=== PATIENT | female | born 1945 | race Caucasian/White ===

== ENCOUNTER 2018-03-29 15:26 | Emergency (ER) | payer OTHER ==
[2018-03-29] MEDS ORDERED: LORazepam 2 MG/ML INJ IVP ONE (15:51)
--- NOTE | 2018-03-29 15:51 | EDPHY ---
H & P Time Seen by Provider: 03/29/18 15:45 HPI/ROS: HPI: This is a 72-year-old female who presents with Chief Complaint: Elevated blood pressure, headache Location: Body Quality: Elevated blood pressure, headache, stress Duration: Several days Signs and Symptoms: no shortness of breath at rest, no shortness of breath on exertion, no cough, no chest pain, no palpitations, no lower extremity edema, no wheezing, no orthopnea, no paroxysmal nocturnal dyspnea, no fever, no injury/ trauma, no hemoptysis, no carpal pedal spasms Timing: Acute, worse Severity: Moderate Context: Patient presents with several day history of not feeling well and increased stress secondary to family problems. Patient reports that she is extremely tearful and feels that this is taking its toll on her body. Patient reports that she started to feel nauseous, lightheaded and have a generalized dull aching headache today. So she took her blood pressure and noted that it was elevated. She has been on lisinopril 40 mg greater than 10 years. She took an extra dose of 40 mg tablet prior to arrival. She reports in [place] approximately 2-3 years ago she had a nuclear stress test performed that was negative per the patient. She denies any actual chest pain, vomiting, diaphoresis, cardiac awareness, palpitations, lower extremity edema, recent long distance travel. Patient had been on hydrochlorothiazide along with lisinopril in the past but was taken off while she lived in [place] due to "kidney issues." Modifying Factors: Lisinopril 40 mg Comment: ROS: A comprehensive 10 system review of systems is otherwise negative aside from elements mentioned in the history of present illness. MEDICAL/SURGICAL/SOCIAL HISTORY: Medical history: sinus arrhythmia, bradycardia, hypertension. Surgical history: Denies Social history: Never smoked. Retired. CONSTITUTIONAL: Tearful, nontoxic-appearing elderly white female, awake and alert, no obvious distress HEENT: Atraumatic and normocephalic, PERRL, EOMI. Nares patent; no rhinorrhea; no nasal mucosal edema. Tympanic membranes clear. Oropharynx clear, no exudate and moist pink mucosa. Airway patent. No lymphadenopathy. No meningismus. No carotid bruits. Cardiovascular: Normal S1/S2, regular rate, regular rhythm, without murmur rub or gallop. PULMONARY/CHEST: Symmetrical and nontender. Clear to auscultation bilaterally. Good air movement. No accessory muscle usage. ABDOMEN: Soft, nondistended, nontender, no rebound, no guarding, no peritoneal signs, no masses or organomegaly. No CVAT. EXTREMITIES: 2/2 pulses, strength 5/5, no deformities, no clubbing, no cyanosis or edema. NEUROLOGICAL: no focal neuro deficits. GCS 15. SKIN: Warm and dry, no erythema. no rash. Good capillary refill. Source: Patient Exam Limitations: No limitations - Medical/Surgical History Hx Asthma: No Hx Chronic Respiratory Disease: No Hx Diabetes: No Hx Cardiac Disease: No Hx Renal Disease: No Hx Cirrhosis: No Hx Alcoholism: No Hx HIV/AIDS: No Hx Splenectomy or Spleen Trauma: No Other PMH: sinus arrthmia, santhosh. HTN b - Social History Smoking Status: Never smoked Constitutional: Initial Vital Signs Temperature (C) 36.7 C 03/29/18 15:37 Heart Rate 76 03/29/18 15:37 Respiratory Rate 16 03/29/18 15:37 Blood Pressure 192/112 H 03/29/18 15:37 O2 Sat (%) 100 03/29/18 15:37 O2 Delivery Mode Room Air Allergies/Adverse Reactions: morphine Allergy (Verified 08/21/13 09:54) Penicillins Allergy (Verified 08/21/13 09:54) shellfish derived Allergy (Verified 08/21/13 09:54) Home Medications: Medication Instructions Recorded Hydrochlorothiazide 08/21/13 Lisinopril 08/21/13 Ondansetron Odt [Zofran Odt 4 mg 4 mg PO Q4PRN PRN #7 tab 08/21/13 (*)] LORazepam [Ativan (*)] 0.5 mg PO Q8 PRN #6 tab 03/29/18 Medical Decision Making ED Course/Re-evaluation: Vital signs reviewed upon arrival and 192/112 but normal sinus rhythm on registered nurse cardiac telemetry. Patient is hypertensive but asymptomatic. No chest pain. 2nd troponin not necessary. IV access, EKG, laboratory studies ordered Suspect this is related to anxiety and stress. Will give patient IV Ativan 1 mg 1608: EKG my read shows normal sinus rhythm with left ventricular hypertrophy but no acute ischemic changes. No Prior EKGs to compare. 1609: Notified by tech that troponin 0.00 1610: Labs reviewed. No signs of leukocytosis/anemia/platelet dysfunction/JAROD/ electrolyte imbalance/VTE/ACS. Calcium noted to be high normal likely due to dehydration. 1640: repeat BP 162/104. Patient is requesting a script for Ativan for increased stress as she is losing the place that she lives in. I believe that this is reasonable to provide to her dispense #6 Tablets. Patient is to follow up with primary care provider in the next 3-5 days for blood pressure monitoring and to determine if she needs to start another blood pressure medication. This patient was seen under the supervision of my secondary supervising physician. I evaluated care for this patient with a 10. Discussed this patient with Dr. Freitas who did not see the patient. Differential Diagnosis: Chest pain including but not limited to myocardial ischemia, pulmonary embolus, chest wall pain, pleural inflammation and pulmonary infectious causes. - Data Points Laboratory Results: Laboratory Results 03/29/18 15:45 03/29/18 15:45 03/29/18 03/29/18 03/29/18 15:59 15:45 15:45 WBC RBC Hgb Hct MCV MCH MCHC RDW Plt Count MPV Neut % (Auto) Lymph % (Auto) [place] % (Auto) Eos % (Auto) Baso % (Auto) Nucleat RBC Rel Count Absolute Neuts (auto) Absolute Lymphs (auto) Absolute Monos (auto) Absolute Eos (auto) Absolute Basos (auto) Absolute Nucleated RBC Immature Gran % Immature Gran # D-Dimer 0.36 ug/mLFEU ug/mLFEU (0.00-0.50) Sodium 137 mEq/L mEq/L (135-145) Potassium 3.9 mEq/L mEq/L (3.5-5.2) Chloride 106 mEq/L mEq/L (97-110) Carbon Dioxide 24 mEq/l mEq/l (22-31) Anion Gap 7 mEq/L mEq/L (6-14) BUN 16 mg/dL mg/dL (7-23) Creatinine 0.9 mg/dL mg/dL (0.6-1.0) Estimated GFR > 60 Glucose 99 mg/dL mg/dL (70-100) Calcium 10.8 mg/dL H mg/dL (8.5-10.4) Phosphorus 3.8 mg/dL mg/dL (2.5-4.5) Magnesium 2.2 mg/dL mg/dL (1.6-2.3) POC Troponin I 0.00 ng/mL ng/mL (0.00-0.08) 03/29/18 15:45 WBC 7.63 10^3/uL 10^3/uL (3.80-9.50) RBC 5.42 10^6/uL H 10^6/uL (4.18-5.33) Hgb 16.2 g/dL g/dL (12.6-16.3) Hct 48.3 % H % (38.0-47.0) MCV 89.1 fL fL (81.5-99.8) MCH 29.9 pg pg (27.9-34.1) MCHC 33.5 g/dL g/dL (32.4-36.7) RDW 13.2 % % (11.5-15.2) Plt Count 251 10^3/uL 10^3/uL (150-400) MPV 9.4 fL fL (8.7-11.7) Neut % (Auto) 60.4 % % (39.3-74.2) Lymph % (Auto) 28.6 % % (15.0-45.0) [place] % (Auto) 7.5 % % (4.5-13.0) Eos % (Auto) 2.5 % % (0.6-7.6) Baso % (Auto) 0.7 % % (0.3-1.7) Nucleat RBC Rel Count 0.0 % % (0.0-0.2) Absolute Neuts (auto) 4.62 10^3/uL 10^3/uL (1.70-6.50) Absolute Lymphs (auto) 2.18 10^3/uL 10^3/uL (1.00-3.00) Absolute Monos (auto) 0.57 10^3/uL 10^3/uL (0.30-0.80) Absolute Eos (auto) 0.19 10^3/uL 10^3/uL (0.03-0.40) Absolute Basos (auto) 0.05 10^3/uL 10^3/uL (0.02-0.10) Absolute Nucleated RBC 0.00 10^3/uL 10^3/uL (0-0.01) Immature Gran % 0.3 % % (0.0-1.1) Immature Gran # 0.02 10^3/uL 10^3/uL (0.00-0.10) D-Dimer Sodium Potassium Chloride Carbon Dioxide Anion Gap BUN Creatinine Estimated GFR Glucose Calcium Phosphorus Magnesium POC Troponin I Medications Given: Discontinued Medications Lorazepam (Ativan Injection) 1 mg IVP EDNOW ONE Stop: 03/29/18 15:52 Last Admin: 03/29/18 15:58 Dose: 1 mg Point of Care Test Results: Chemistry 03/29/18 15:59 POC Troponin I 0.00 ng/mL ng/mL (0.00-0.08) Departure - Departure Disposition: Home, Routine, Self-Care Clinical Impression: Essential hypertension Condition: Good Instructions: Hypertension (ED) Additional Instructions: Please take Lisinopril 40 mg daily as prescribed. Try to reduce stress as much as possible. Take Ativan 0.5 mg every 8 hr as needed for anxiety. Eat a low-salt/heart healthy diet. Follow-up with primary care provider in the next 3-5 days for repeat blood pressure monitoring and to discuss increased stress. Referrals: Sowmya Spicer MD [Primary Care Provider] - As per Instructions Prescriptions: LORazepam [Ativan (*)] 0.5 mg PO Q8 PRN #6 tab PRN Reason: Anxiety
[2018-03-29 16:03] LABS: PLATELET COUNT 251 10^3/uL (150-400)
[2018-03-29 16:45] VITALS: BP 162/104
== END 2018-03-29 17:15 | disposition home or self-care (01) ==
DX: I10 Essential (primary) hypertension (principal); Z88.0 Allergy status to penicillin
CPT/HCPCS: 96374; 99284; J2060; 84484-ER

== ENCOUNTER 2018-04-21 15:17 | Emergency (ER) | payer OTHER | END 2018-04-21 16:44 | disposition home or self-care (01) ==

== ENCOUNTER 2018-04-24 12:32 | Emergency (ER) | payer OTHER ==
--- NOTE | 2018-04-24 12:55 | EDPHY ---
HPI/HX/ROS/PE/MDM Narrative: CHIEF COMPLAINT: Hypertension, neck discomfort, malaise HPI: This patient is a 72-year-old female with history of hypertension. She was evaluated in this emergency department three days ago for hypertension, and added Norvasc to her antihypertensive regimen at that time. She is scheduled to follow up with Dr. Hoyos, public transit specialist, on Monday. For the past three days since beginning the Norvasc, the patient has felt poorly taking this medication including nausea, headache, and persistent hypertension around 150 systolic. She states "I just don't feel right" and complains of fatigue and weakness. Today, she developed an odd sensation / discomfort in her right carotid area which radiates to her ear and mild numbness in her right cheek. She was on her way to see her primary care provider today but felt so poorly she decided to come to the emergency department instead. Her last dose of Norvasc this morning around 7am. She denies fever or cough. No vomiting, diarrhea, chest pain, shortness of breath, syncope, headache, or other associated symptoms. REVIEW OF SYSTEMS: A comprehensive 10 system review of systems is otherwise negative aside from elements mentioned in the history of present illness and medical decision making. PMH: Hypertension. SOCIAL HISTORY: Lives in [place]. Retired. Does not abuse tobacco, drugs, or alcohol. PHYSICAL EXAM: General:Patient is alert, in no acute distress. ENT:Eyes are normal to inspection. ENT inspection normal. Neck: Normal inspection. Full range of motion. Respiratory:No respiratory distress. Breath sounds normal bilaterally. Cardiovascular: Regular rate and rhythm. Strong peripheral pulses. Normal cap refill. Abdomen:The abdomen is nontender to palpation. There are no peritoneal signs. There are normal bowel sounds. Back: Normal to inspection. No tenderness to palpation. Skin: Normal color. No rash. Warm and dry. Extremities: Normal appearance. Full range of motion. Neuro: Oriented x3. Normal motor function. Normal sensory function. ED Course: 72 year old female with history of hypertension presents with right-sided neck pain and facial numbness as well as continued hypertension despite recent addition of Norvasc to her antihypertensive regimen. She additionally complains of poor reactions to Norvasc including nausea, weakness, and fatigue. Plan for CTA head/neck for further evaluation. IV established. Plan for labs including CBC, chemistries, I-stat chem 8. 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 Plan to consult with radiology regarding considerations for pre-medicating the patient for IV contrast. 13:[address] Negrete, radiologst. There is no pre-treatment necessary for a patient with shellfish allergy prior to CT with IV contrast. Plan to proceed with CTA head/neck as above pending I-stat chemistry results. 13:17 Creatinine 1.0. Plan for CTA head/neck. 14:[address] Gilbert, radiologist. CTA head and neck are negative for acute processes. 15:[address] Weiss, public transit specialist. He recommends Hydralazine for this patient given her sensitivity to several other antihypertensive medications. MDM: This patient presents with ongoing elevation of her blood pressure, complicated by difficulty tolerating Norvasc that she was recently prescribed. I reviewed her medication history and patient states that she cannot tolerate beta-blockers , nor diuretics. This led me to consult with Cardiology who has recommended that we try a course of hydralazine. The patient has appointment with Cardiology in less than a week so I think it is reasonable to start this in short-term and they can adjust as needed. I see no signs of hypertensive emergency. The patient did complain of some anterior right-sided neck pain, so a CTA was performed, but thankfully this is negative. There are no signs of stroke or TIA. - Data Points Imaging Results: Imaging Impressions Head CTA 04/24/18 13:44 Impression: Widely patent carotid and vertebral arteries. No flow-limiting stenosis, dissection, or occlusion. CT Angiogram Head Findings: The anterior and posterior circulation are normal. The left posterior communicating artery is hypoplastic. The dominant left vertebral artery is the primary feeding vessel to the basilar artery. No filling defect, occlusion, aneurysm, or vascular malformation. The sagittal sinus is normally opacified. No enhancing intracranial mass. The paranasal sinuses are clear. Impression: 1. Normal intracranial arterial circulation. No evidence of embolic disease or aneurysm. 2. Patent venous system. Findings discussed with Emergency Department physician, Alfred Bar M.D. , on April 24, 2018 at 1450. Neck CTA 04/24/18 13:44 Impression: Widely patent carotid and vertebral arteries. No flow-limiting stenosis, dissection, or occlusion. CT Angiogram Head Findings: The anterior and posterior circulation are normal. The left posterior communicating artery is hypoplastic. The dominant left vertebral artery is the primary feeding vessel to the basilar artery. No filling defect, occlusion, aneurysm, or vascular malformation. The sagittal sinus is normally opacified. No enhancing intracranial mass. The paranasal sinuses are clear. Impression: 1. Normal intracranial arterial circulation. No evidence of embolic disease or aneurysm. 2. Patent venous system. Findings discussed with Emergency Department physician, Alfred Bar M.D. , on April 24, 2018 at 1450. Imaging: Discussed imaging studies w/ call taker Radiologist Laboratory Results: Laboratory Results 04/24/18 13:09 04/24/18 04/24/18 04/24/18 13:16 13:13 13:09 POC Hgb 17.0 gm/dL H gm/dL (12.6-16.3) POC Hct 50 % H % (38-47) POC Sodium 141 mEq/L mEq/L (135-145) Sodium 138 mEq/L mEq/L (135-145) POC Potassium 3.7 mEq/L mEq/L (3.3-5.0) Potassium 4.0 mEq/L mEq/L (3.5-5.2) POC Chloride 105 mEq/L mEq/L (97-110) Chloride 103 mEq/L mEq/L (97-110) Carbon Dioxide 22 mEq/l mEq/l (22-31) POC Total CO2 23 mEq/L mEq/L (22-31) Anion Gap 13 mEq/L mEq/L (6-14) POC BUN 12 mg/dL mg/dL (7-23) BUN 14 mg/dL mg/dL (7-23) Creatinine 1.0 mg/dL mg/dL (0.6-1.0) POC Creatinine 1.0 mg/dL mg/dL (0.6-1.0) Estimated GFR 55 Glucose 107 mg/dL H mg/dL (70-100) POC Glucose 113 mg/dL H mg/dL (70-100) Calcium 10.7 mg/dL H mg/dL (8.5-10.4) Phosphorus 3.6 mg/dL mg/dL (2.5-4.5) POC Troponin I 0.00 ng/mL ng/mL (0.00-0.08) Medications Given: Discontinued Medications Sodium Chloride (Ns) 500 mls @ 0 mls/hr IV EDNOW ONE; Wide Open PRN Reason: Protocol Stop: 04/24/18 13:05 Last Admin: 04/24/18 13:10 Dose: 500 mls Point of Care Test Results: Chemistry 04/24/18 04/24/18 13:16 13:13 POC Sodium 141 mEq/L mEq/L (135-145) POC Potassium 3.7 mEq/L mEq/L (3.3-5.0) POC Chloride 105 mEq/L mEq/L (97-110) POC Total CO2 23 mEq/L mEq/L (22-31) POC BUN 12 mg/dL mg/dL (7-23) POC Creatinine 1.0 mg/dL mg/dL (0.6-1.0) POC Glucose 113 mg/dL H mg/dL (70-100) POC Troponin I 0.00 ng/mL ng/mL (0.00-0.08) ISTAT H&H 04/24/18 13:16 POC Hgb 17.0 gm/dL H gm/dL (12.6-16.3) POC Hct 50 % H % (38-47) General Time Seen by Provider: 04/24/18 12:53 Initial Vital Signs: Initial Vital Signs Temperature (C) 36.6 C 04/24/18 12:33 Heart Rate 86 04/24/18 12:33 Respiratory Rate 16 04/24/18 12:33 Blood Pressure 182/97 H 04/24/18 12:33 O2 Sat (%) 99 04/24/18 12:33 O2 Delivery Mode Room Air Allergies/Adverse Reactions: morphine Allergy (Verified 04/24/18 12:37) Penicillins Allergy (Verified 04/24/18 12:37) shellfish derived Allergy (Verified 04/24/18 12:37) Home Medications: Medication Instructions Recorded Hydrochlorothiazide 08/21/13 Lisinopril 08/21/13 amLODIPine BESYLATE [Norvasc 2.5 2.5 mg PO DAILY #14 tab 04/21/18 mg (*)] Herbals/Supplements -Info Only 04/24/18 Hydralazine HCl 10 mg PO TID #21 tablet 04/24/18 Departure - Departure Disposition: Home, Routine, Self-Care Clinical Impression: Hypertension Condition: Good Instructions: Hypertension (ED) Additional Instructions: Take Hydralazine as prescribed. Follow up with your primary care provider within 72 hours for further management of your blood pressure medications. Keep your appointment with cardiology as scheduled. Return to the emergency department for fever, chest pain, shortness of breath, severe headache, or other worsening of condition or further concerns. Referrals: Sowmya Spicer MD [Primary Care Provider] - As per Instructions Prescriptions: Hydralazine HCl 10 mg PO TID #21 tablet Report Scribed for: Alfred Bar Report Scribed by: Nataly Dior Date of Report: 04/24/18 Time of Report: 13:12 Physician Review and Approval Statement: Portions of this note were transcribed by an ED scribe. I personally performed the history, physical exam, and medical decision making; and confirm the accuracy of the information in the transcribed note.
[2018-04-24] MEDS ORDERED: NS 500 ML IV ONE (13:04)
[2018-04-24] MEDS ORDERED: IOPAMIDOL (ISOVUE 370) 100 ML BTL IV ONE (14:14)
[2018-04-24] MEDS ORDERED: hydrALAZINE 10 MG TAB PO ONE (15:03)
[2018-04-24 16:19] VITALS: BP 160/83
== END 2018-04-24 16:28 | disposition home or self-care (01) ==
DX: I10 Essential (primary) hypertension (principal); M54.2 Cervicalgia; R53.1 Weakness; R11.0 Nausea; E86.9 Volume depletion, unspecified; Z88.0 Allergy status to penicillin
CPT/HCPCS: 70496; 70498; 96360; 99285; Q9967; 82435-PO; 82565-PO; 82947-PO; 84132-PO; 84295-PO; 84484-ER; 84520-PO; 85014-ER

== ENCOUNTER → 2018-05-07 | Outpatient (CLI) | payer OTHER | LOC: BHFA 13:30 | PROVIDERS: ATTEND Internal Medicine Cardiovascular Disease | DX: R07.9 Chest pain, unspecified (principal); R94.31 Abnormal electrocardiogram [ECG] [EKG] | CPT/HCPCS: 78452; 93017; A9500 ==

== ENCOUNTER → 2018-05-22 | Outpatient (CLI) | payer OTHER | LOC: BHFA 10:00 | PROVIDERS: ATTEND Internal Medicine Cardiovascular Disease | DX: R07.9 Chest pain, unspecified (principal) ==